=== PATIENT | female | born 1985 | race Caucasian/White ===

== ENCOUNTER 2021-01-20 10:37 | Outpatient (REF) | payer MEDICARE, MEDICAID, SELFPAY ==
[2021-01-20 14:20] LABS: CT PCR NOT DETECTED (Not Detect.); NG PCR NOT DETECTED (Not Detect.)
[2021-01-21 09:12] LABS: BV Int Neg Control Negative (Negative); BV Int Pos Control Positive (Positive)
[2021-01-22 18:22] LABS: HPV mRNA E6/E7 rflx Not Detected (Not Detected)
== END 2021-01-20 10:38 | disposition home or self-care (01) ==
LOC: HO.LAB 10:37
PROVIDERS: Visit Provider Advanced Practice Midwife
DX: Z01.419 Encounter for gynecological examination (general) (routine) without abnormal findings (principal); Z11.51 Encounter for screening for human papillomavirus (HPV); Z11.3 Encounter for screening for infections with a predominantly sexual mode of transmission; N94.6 Dysmenorrhea, unspecified; K59.00 Constipation, unspecified; Z20.2 Contact with and (suspected) exposure to infections with a predominantly sexual mode of transmission
CPT/HCPCS: 87480; 87491; 87510; 87591; 87624; 87660; 88142

== ENCOUNTER 2021-01-29 10:51 | Outpatient (REF) | payer MEDICARE, MEDICAID, SELFPAY ==
--- NOTE | ~2021-01-29 | US_ITS ---
EXAMINATION: US DIAGNOSTIC ULTRASOUND BREAST, RIGHT CLINICAL INFORMATION: Palpable lump. COMPARISON: Mammography of same day. TECHNIQUE: Ultrasound of the breast is performed with real-time urrutia scale imaging and color Doppler. FINDINGS: Targeted ultrasound evaluation to palpable lesion 8:00 position 5 cm from the nipple did not demonstrate any abnormal cystic or solid mass. No region of abnormal distal sound shadowing was evident. Results are discussed with the patient at time of visit. US/US breast RT limited IMPRESSION: No specific mammographic or ultrasound findings to suggest malignancy. ASSESSMENT: BI-RADS 1: Negative RECOMMENDATION: Clinical follow-up. Mammography at 41 years old.
--- NOTE | ~2021-01-29 | MM_ITS ---
EXAMINATION: MM DIAGNOSTIC DIGITAL BREAST TOMOSYNTHESIS, BILATERAL Targeted right breast ultrasound CLINICAL INFORMATION: Right breast lump The lifetime risk of breast cancer based on the Tyrer-Cuzick Model is 18.5%. COMPARISON: Mammography: None TECHNIQUE: Digital breast tomosynthesis is performed in both the craniocaudal and mediolateral oblique views along with computer-aided detection (CAD). Synthesized 2D images are generated from the tomosynthesis. Targeted right breast ultrasound FINDINGS: The breasts are extremely dense, which lowers the sensitivity of mammography (ACR BI-RADS breast composition Category d). No abnormal dominant mass or suspicious grouping of microcalcifications is identified. No area of architectural distortion is seen with limitations related to the very dense breast parenchyma. Targeted ultrasound evaluation to palpable lesion 8:00 position 5 cm from the nipple did not demonstrate any abnormal cystic or solid mass. No region of abnormal distal sound shadowing was evident. Results are discussed with the patient at time of visit. MM/MM tomosynthesis diagnostic BI IMPRESSION: No specific mammographic or ultrasound findings to suggest malignancy. ASSESSMENT: BI-RADS 1: Negative RECOMMENDATION: Clinical follow-up. Mammography at 41 years old. This patient's information was entered into a reminder system with a target due date for their next mammogram.
== END 2021-01-29 10:52 | disposition home or self-care (01) ==
LOC: HO.MAMMO 10:51
PROVIDERS: Visit Provider Advanced Practice Midwife
DX: N63.15 Unspecified lump in the right breast, overlapping quadrants (principal)
CPT/HCPCS: 76642; 77062; 77066

== ENCOUNTER 2021-02-04 11:16 | Outpatient (REF) | payer MEDICARE, MEDICAID, SELFPAY ==
--- NOTE | ~2021-02-04 | US_ITS ---
EXAMINATION: US PELVIS TRANSVAGINAL CLINICAL INFORMATION: Dysmenorrhea COMPARISON: CT scan of 03/19/2014 TECHNIQUE: Transcutaneous and transvaginal pelvic ultrasound. Transvaginal scanning was performed after voiding to better evaluate the endometrium and adnexa. FINDINGS: The uterus measures 8.1 x 4.1 x 5.5 cm. The uterus is anteverted. No suspicious abnormalities region of the cervix. The uterine contour is smooth. The endometrium measures 0.7 cm. There are some small punctate calcifications seen within the endometrium. No focal abnormalities within the myometrium. The right ovary measures approximately 5.8 x 4.0 x 4.7 cm. The calculated right ovarian volume is approximately 57.8 mL. Within the right adnexa there are noted to be 2 adjacent solid lesions, one measuring 4.2 x 2.9 x 4.4 cm in size and the other measuring 3.3 x 3.1 x 3.0 cm in size. On the previous CT scan of 03/19/2014, there was noted to be a right adnexal mass measuring 5.4 x 2.9 cm in size containing fat and calcification consistent with a dermoid. I cannot tell if the second mass seen on the ultrasound now representing a lobulation on prior CT scan. Normal vascular flow. The left ovary measures 4.2 x 3.2 x 3.5 cm. The calculated left ovarian volume is approximately 24.3 mL. There is an approximately 3.0 x 2.5 x 2.8 cm simple-appearing left ovarian cyst. There is normal vascular flow present to the adnexa. No significant free pelvic fluid. US/US pelvic and transvaginal IMPRESSION: 2 solid-appearing right adnexal masses in patient with known dermoid tumor from study of 03/19/2014. 3 cm simple-appearing left ovarian cyst.
== END 2021-02-04 11:17 | disposition home or self-care (01) ==
LOC: HO.US 11:16
PROVIDERS: Visit Provider Advanced Practice Midwife
DX: N94.6 Dysmenorrhea, unspecified (principal)
CPT/HCPCS: 76830; 76856

== ENCOUNTER → 2021-02-13 12:18 | Outpatient (BNVA) | payer MEDICARE, MEDICAID, SELFPAY | PROVIDERS: Visit Provider Advanced Practice Midwife | DX: N94.6 Dysmenorrhea, unspecified (principal); Z71.2 Person consulting for explanation of examination or test findings; R10.2 Pelvic and perineal pain; D36.9 Benign neoplasm, unspecified site; K59.09 Other constipation | CPT/HCPCS: Q3014 ==

== ENCOUNTER 2021-02-16 10:49 | Outpatient (REF) | payer MEDICARE, MEDICAID, SELFPAY ==
[2021-02-17 08:51] LABS: CA-125 12 U/mL (<35)
== END 2021-02-16 10:50 | disposition home or self-care (01) ==
LOC: HO.LAB 10:49
PROVIDERS: PCP Family Medicine; Visit Provider Advanced Practice Midwife
DX: D36.9 Benign neoplasm, unspecified site (principal)
CPT/HCPCS: 36415; 86304

== ENCOUNTER → 2021-03-11 13:27 | Outpatient (BNVA) | payer MEDICARE, MEDICAID, SELFPAY | PROVIDERS: PCP Family Medicine; Visit Provider Obstetrics & Gynecology | DX: N83.291 Other ovarian cyst, right side (principal) | CPT/HCPCS: 99212 ==

== ENCOUNTER 2021-03-13 09:37 | Outpatient (REF) | payer MEDICARE, MEDICAID, SELFPAY ==
--- NOTE | ~2021-03-13 | MR_ITS ---
EXAMINATION: MR PELVIS WITHOUT AND WITH CONTRAST CLINICAL INFORMATION: Right ovarian cyst. COMPARISON: Previous CT of the abdomen and pelvis March 2014 and pelvic ultrasound January 2021. TECHNIQUE: Sagittal axial and coronal sequences through the pelvis were performed with and without contrast. Patient received 4.5 mL of intravenous Gadavist gadolinium contrast. FINDINGS: The uterus is normal in size and shape and measures 8.1 x 4.3 x 5.8 cm in sagittal AP and transverse dimension. No focal uterine lesion is seen. Endometrial thickness is normal measuring 4 mm. The junctional zone is upper normal in size measuring 7 mm. The cervix is normal appearing. There is a complex multiloculated cystic lesion in the right ovary. This measures 4.3 x 6 x 3.4 cm in sagittal AP and transverse dimension. This is slightly increased in size from previous CT scan when this measured 4 x 4.7 x 2.6 cm. This is heterogeneous in signal on T1 and T2 weighted sequences with high and intermediate signal and fluid-fluid level. This demonstrates enhancement posterior inferiorly with enhancing iros and thick septations for example image 14 postcontrast. The left ovary is normal in size and contains multiple small simple cysts or follicles. There is a small amount of fluid in the pelvis. The bladder is normal. Visualized bowel is normal. No adenopathy is seen. There is no hernia. Bony structures are normal. MR/MR pelvis wo/w con IMPRESSION: Complex multiloculated right ovarian cyst probably representing a dermoid cyst. This is slightly increased in size from previous CT scan of the abdomen and pelvis March 2014 and demonstrate areas of wall enhancement and enhancement of thick septations. Small amount of ascites.
== END 2021-03-13 09:38 | disposition home or self-care (01) ==
LOC: HO.MRI 09:37
PROVIDERS: Visit Provider Obstetrics & Gynecology
DX: N83.291 Other ovarian cyst, right side (principal)
CPT/HCPCS: 72197; A9585

== ENCOUNTER → 2021-03-17 14:13 | Outpatient (BNVA) | payer MEDICARE, MEDICAID, SELFPAY | PROVIDERS: Visit Provider Obstetrics & Gynecology | DX: Z30.09 Encounter for other general counseling and advice on contraception (principal) | CPT/HCPCS: Q3014 ==

== ENCOUNTER → 2021-03-23 11:43 | Outpatient (BNVA) | payer MEDICARE, MEDICAID, SELFPAY | PROVIDERS: Visit Provider Obstetrics & Gynecology | DX: N83.291 Other ovarian cyst, right side (principal) | CPT/HCPCS: 99212 ==

== ENCOUNTER 2023-09-13 13:14 | Outpatient (AMB) | payer MEDICARE, MEDICAID, SELFPAY ==
--- NOTE | 2023-09-13 13:57 | AM.OFFWIN_ITS ---
Intake Vital Signs 09/13/23 14:20 Height 5 ft Weight 121 lb BMI 23.6 BP 110/76 Blood Pressure Location Rt brachial Position Sitting Pulse 78 Pulse Source Pulse Oximeter Temp 97.7 F Temp Source Temporal Artery Scan Pulse Oximetry (%) 97 Oxygen Delivery Method Room Air Intake Visit Reasons: EP sore throat congestion aches masked in lobby Intake Note: pt is here today for sore throat congestion aches started tuesday night Allergies From [facility] Allergy (Severe, Uncoded 08/13/22 11:15) ITCHING Do you need a note to return to daycare/school/sports/work: Yes HPI HPI Comments History of Present Illness Details 38-year-old female history of OCD, anxie ty, thrombocytopenia, complex cyst, dysmenorrhea presents to the clinic for sick visit she is concerned about fatigue, malaise, myalgias, sore throat, productive cough, congestion that started last tuesday 8 days ago, not improving. Denies fevers, chills, chest pain, shortness of breath, nausea, vomiting, abdominal pain, headache, vision changes, dizziness, weakness, changes in voice, drooling neck pain. Physical examination benign This is likely viral illness flu versus COVID versus RSV versus viral pharyngitis vs bronchitis. Unlikely strep pharyngitis, retropharyngeal or peritonsillar abscess, epiglottitis, threat to airway. I do not suspect pneumonia, meningitis, encephalitis. Plan at this time viral testing strep test. 1453 Strep test negative. Will treat for bronchitis at this time. Educated patient on diagnosis and treatment plan, answered all question, patient verbalizes understanding. At this time patient will be discharged home, advised to return with new or worsening symptoms. Educated on worrisome signs and symptoms and when to return. At this time I feel comfortable discharge home. [facility] Medical History Thrombocytopenia Anxiety Constipation OCD (obsessive compulsive disorder) Depression Ingrown toenail Surgical History History of wisdom tooth extraction Family History Father Colon cancer Mother Breast cancer Daughter No problems noted. Brother No problems noted. Female Reproductive History Menstrual Age of Menarche: 17 Review of Systems Const Details: Constitutional : No Weight loss, No Fever, No Chills, + Fatigue, + Malaise ENT/Mouth : + sore throat, No Rhinorrhea Eyes: No Eye Pain, No Swelling, No Redness Cardiovascular : No Chest Pain, No SOB, No Dyspnea on Exertion, No Orthopnea, No Edema, No Palpitations Respiratory : No Cough, No Sputum, No Wheezing Gastrointestinal : No Nausea, No Vomiting, No Diarrhea, No Constipation, No abdominal Pain, No Hematochezia, No Melena Genitourinary : No Dysuria, No Urinary Frequency, No Hematuria, Musculoskeletal : No joint pain, + Myalgias, No Joint Swelling Skin : No Skin Lesions, No rash Neuro : No Weakness, No Numbness, No Dizziness, No Headache Psych : No Anxiety/Panic, No Depression All other systems reviewed and are negative All systems reviewed & are unremarkable except as noted in HPI and below Physical Exam Vital Signs: Last Vital Signs Temp 97.7 F 09/13/23 14:20 Pulse 78 09/13/23 14:20 BP 110/76 09/13/23 14:20 Pulse Ox 97 09/13/23 14:20 Oxygen Delivery Method Room Air 09/13/23 14:20 BMI result Body Mass Index 23.6 vss Appearance: Alert.? Oriented X3.? No acute distress.? Head: Normocephalic, atraumatic, no step-offs or deformities Eyes: Pupils equal, round and reactive to light.? Throat: Pharynx normal, uvula midline, no exudate/abscess. Speaking in full sentences, controlling secretions well. Neck: Normal inspection.? Neck supple.? CVS: Normal heart rate and rhythm.? Pulses normal.? Respiratory: No respiratory distress.? Breath sounds normal.? Abdomen: Soft and nontender.? Skin: Skin warm and dry.? Normal skin color.? Normal skin turgor.? Extremities: No lower extremity edema.? No calf ttp. 5/5 strength to bilateral upper and lower extremities Neuro: Oriented X 3.? No motor deficit.? No sensory deficit. CN 2-12 intact Results AMB Rapid Strep AMB Rapid Strep Negative Last Edit by Manny Das CMA on 09/13/23 14 :41 Results Reviewed Results Reviewed: Laboratory Last Values Strep Scn Rapid Clinic Negative 09/13/23 14:40 Assessment & Plan Assessment & Plan (1) Bronchitis: Code(s): J40 - Bronchitis, not specified as acute or chronic Plan Take your medications as prescribed. If you were prescribed antibiotics today, it is important that you take your medication to their entirety, do not skip any doses, do not finish them early. Follow-up with your primary care provider this week. Return to the emergency department with new or worsening symptoms. Such as fevers, chills, chest pain, shortness of breath, nausea, vomiting, dizziness, headache, vision changes, lethargy In case of emergency call 911 Orders: Orders AMB Rapid Strep Screen Today Z13.9 - Encounter for screening, unspecified FRANCESCO Mcgowan Medications: New azithromycin For 250 mg dose pack: take 500 mg today (day 1), then 250 mg for 4 days (days 2-5) PO 6 tabs 0RF ROSANA Aragon prednisone 20 mg PO DAILY 5 tabs 0RF 5 days ROSANA Aragon albuterol sulfate 2.5 mg (0.5 mL) inhalation Q6H PRN 20 mL 0RF shortness of breath or wheezing ROSANA Aragon Coding Level of Care Code Est Pt Level 3 (39584) Diagnoses Bronchitis J40
[2023-09-13 14:20] VITALS: BP 110/76; PULSE 78; TEMP 36.5; O2SAT 97; BMI 23.6
== END 2023-09-13 15:14 | disposition home or self-care (01) ==
PROVIDERS: PCP Family Medicine; Visit Provider Physician Assistant
DX: J02.9 Acute pharyngitis, unspecified (principal)
CPT/HCPCS: 87880; 99213

== ENCOUNTER 2023-09-13 16:07 | Outpatient (REF) | payer MEDICARE, MEDICAID, SELFPAY ==
[2023-09-13 17:18] LABS: Influenza A PCR NEGATIVE (Negative); Influenza B PCR NEGATIVE (Negative); Resp Syncy Virus RNA Qual PCR NEGATIVE (Negative); SARS COV2 PCR INHOUSE NEGATIVE (Negative)
== END 2023-09-13 16:08 | disposition home or self-care (01) ==
LOC: HO.LNP 16:07
PROVIDERS: Visit Provider Physician Assistant
DX: Z11.52 Encounter for screening for COVID-19 (principal); Z20.822 Contact with and (suspected) exposure to COVID-19; B34.9 Viral infection, unspecified
CPT/HCPCS: 0241U